=== PATIENT | male | born 1945 | race Native Hawaiian/Other Pacific Islander ===

== ENCOUNTER 2020-11-07 14:39 | Emergency (ER) | payer MEDICARE ==
[2020-11-07 16:21] LABS: Basophils % (Auto) 0.2 % (0.0-1.8); Eosinophils % (Auto) 0.2 % (0.0-4.3); Hematocrit 41.1 % (35.5-45.6); Hemoglobin 14.1 gm/dl (11.8-15.2); Lymphocytes # (Auto) 1.1 K/mm3 (1.2-5.4); Lymphocytes % (Auto) 11.6 % (13.4-35.0); Mean Corpuscular HGB Conc 34 % (32-34); Mean Corpuscular Volume 95 fl (84-94); Monocytes # (Auto) 0.6 K/mm3 (0.0-0.8); Monocytes % (Auto) 6.4 % (0.0-7.3); Platelet Count 215 K/mm3 (140-440); Red Blood Count 4.35 M/mm3 (3.65-5.03); Red Cell Distribution Width 14.4 % (13.2-15.2)
--- NOTE | 2020-11-07 16:43 | Event Note ---
ED Screening Note Date of service: 11/07/20 Time: 16:42 ED Screening Note: Pt presents with c/o chest pain and upper abd pain since this morning with associated nausea and vomiting. He denies diarrhea, SOB, fever, chills, URI symptoms. This initial assessment/diagnostic orders/clinical plan/treatment(s) is/are subject to change based on patients health status, clinical progression and re- assessment by fellow clinical providers in the ED. Further treatment and workup at subsequent clinical providers discretion. Patient/guardian urged not to elope from the ED as their condition may be serious if not clinically assessed and managed. Initial orders include: Chest pain/abd pain orders
--- NOTE | 2020-11-07 17:09 | XRay Report ---
CHEST 2 VIEWS INDICATION / CLINICAL INFORMATION: chest pain. COMPARISON: None available. FINDINGS: SUPPORT DEVICES: None. HEART / MEDIASTINUM: No significant abnormality. LUNGS / PLEURA: There is a 4 mm nodule within the right lower lung zone lymphoma view and a 4 mm nodu le in the left lower lung zone. No pneumothorax. ADDITIONAL FINDINGS: No significant additional findings. IMPRESSION: 1. Tiny 4 mm nodules are noted bilaterally. These are relatively dense and likely represent granuloma s. The lungs are clear otherwise. There is no pneumothorax. Signer Name: Abdifatah Tabor MD Signed: 11/07/2020 5:05 PM Workstation Name: [id number]
[2020-11-07 18:03] LABS: Alanine Aminotransferase 78 units/L (7-56); Albumin 4.2 g/dL (3.9-5); Blood Urea Nitrogen 20 mg/dL (9-20); Calcium 9.4 mg/dL (8.4-10.2); Hemolysis Index 6
[2020-11-07 18:08] LABS: BUN/Creatinine Ratio 29
--- NOTE | 2020-11-07 22:13 | Emergency Department Report ---
HPI - General Chief Complaint: Abdominal Pain Time Seen by Provider: 11/07/20 16:14 - HPI HPI: This patient does not speak Martiniquais and therefore the language line translation services were used for all encounters. This is a 74-year-old male presents to the emergency department with a complaint of some chest pain, abdominal pain, nausea with vomiting that started this morning around 8 AM. At that time the pain went from the middle of his abd omen up through his chest, almost to the neck. Shortly afterwards the patient had multiple episodes of vomiting. He took Tylenol 1000 mg for his symptoms with some transient relief. He then went to an urgent care clinic but they told him to come to the emergency department and that they could not help him secondary to elevated blood pressure. He denies any previous history of diagnosed hypertension and is not on any chronic medications. At the time of my examination the patient complains of some mild generalized abdominal pain. However, the chest pain, nausea and vomiting have all resolved. No recent travel or sick contacts at home. No known aggravating or alleviating factors. ED Past Medical Hx - Past Medical History Previous Medical History?: No - Surgical History Past Surgical History?: No ED Review of Systems ROS: Stated complaint: CHEST PAIN Other details as noted in HPI Comment: All other systems reviewed and negative Constitutional: denies: chills, fever Eyes: denies: eye pain, vision change ENT: denies: ear pain, throat pain Respiratory: denies: cough, shortness of breath Cardiovascular: chest pain. denies: palpitations Gastrointestinal: abdominal pain, nausea, vomiting Genitourinary: denies: dysuria, discharge Musculoskeletal: denies: back pain, arthralgia Skin: denies: rash, lesions Neurological: denies: headache, weakness Physical Exam - Physical Exam Vital Signs: Vital Signs 11/07/20 15:03 Temperature 98 F Pulse Rate 66 Respiratory 18 Rate Blood Pressure 187/90 [Right] O2 Sat by Pulse 98 Oximetry Physical Exam: GENERAL: The patient is well-developed well-nourished. HENT: Normocephalic. Atraumatic. Patient has moist mucous membranes. EYES: Extraocular motions are intact. NECK: Supple. Trachea is midline. CHEST/LUNGS: Clear to auscultation. There is no respiratory distress noted. HEART/CARDIOVASCULAR: Regular. There is no tachycardia. There is no murmur. ABDOMEN: Abdomen is soft. Generalized abdominal tenderness to palpation. No guarding. Patient has normal bowel sounds. There is no abdominal distention. SKIN: Skin is warm and dry. NEURO: The patient is awake, alert, and oriented. The patient is cooperative. The patient has no focal neurologic deficits. Normal speech. MUSCULOSKELETAL: There is no tenderness or deformity. There is no limitation range of motion. ED Course Vital Signs 11/07/20 15:03 Temperature 98 F Pulse Rate 66 Respiratory 18 Rate Blood Pressure 187/90 [Right] O2 Sat by Pulse 98 Oximetry ED Medical Decision Making - Lab Data Result diagrams: 11/07/20 15:59 11/07/20 15:59 Lab Results 11/07/20 11/07/20 11/07/20 Range/Units 15:59 15:59 16:53 WBC 9.3 (4.5-11.0) K/mm3 RBC 4.35 (3.65-5.03) M/mm3 Hgb 14.1 (11.8-15.2) gm/dl Hct 41.1 (35.5-45.6) % MCV 95 H (84-94) fl MCH 32 (28-32) pg MCHC 34 (32-34) % RDW 14.4 (13.2-15.2) % Plt Count 215 (140-440) K/mm3 Lymph % (Auto) 11.6 L (13.4-35.0) % Mccormick % (Auto) 6.4 (0.0-7.3) % Eos % (Auto) 0.2 (0.0-4.3) % Baso % (Auto) 0.2 (0.0-1.8) % Lymph # (Auto) 1.1 L (1.2-5.4) K/mm3 Mccormick # (Auto) 0.6 (0.0-0.8) K/mm3 Eos # (Auto) 0.0 (0.0-0.4) K/mm3 Baso # (Auto) 0.0 (0.0-0.1) K/mm3 Seg Neutrophils % 81.6 H (40.0-70.0) % Seg Neutrophils # 7.6 (1.8-7.7) K/mm3 Sodium 141 (137-145) mmol/L Potassium 4.7 (3.6-5.0) mmol/L Chloride 105.9 (98-107) mmol/L Carbon Dioxide 24 (22-30) mmol/L Anion Gap 16 mmol/L BUN 20 (9-20) mg/dL Creatinine 0.7 L (0.8-1.3) mg/dL Estimated GFR > 60 ml/min BUN/Creatinine Ratio 29 % Glucose 109 H (75-100) mg/dL Calcium 9.4 (8.4-10.2) mg/dL Total Bilirubin 0.80 (0.1-1.2) mg/dL AST 224 H (5-40) units/L ALT 78 H (7-56) units/L Alkaline Phosphatase 164 H (35-129) units/L Troponin T < 0.010 (0.00-0.029) ng/mL Total Protein 7.3 (6.3-8.2) g/dL Albumin 4.2 (3.9-5) g/dL Albumin/Globulin Ratio 1.4 % Lipase 322 H (13-60) units/L Urine Color (Yellow) Urine Turbidity (Clear) Urine pH (5.0-7.0) Ur Specific Fred (1.003-1.030) Urine Protein (Negative) mg/dL Urine Glucose (UA) (Negative) mg/dL Urine Ketones (Negative) mg/dL Urine Blood (Negative) Urine Nitrite (Negative) Urine Bilirubin (Negative) Urine Urobilinogen (<2.0) mg/dL Ur Leukocyte Esterase (Negative) Urine WBC (Auto) (0.0-6.0) /HPF Urine RBC (Auto) (0.0-6.0) /HPF U Epithel Cells (Auto) (0-13.0) /HPF Urine Mucus /HPF /09/25 Range/Units 23:51 WBC (4.5-11.0) K/mm3 RBC (3.65-5.03) M/mm3 Hgb (11.8-15.2) gm/dl Hct (35.5-45.6) % MCV (84-94) fl MCH (28-32) pg MCHC (32-34) % RDW (13.2-15.2) % Plt Count (140-440) K/mm3 Lymph % (Auto) (13.4-35.0) % Mccormick % (Auto) (0.0-7.3) % Eos % (Auto) (0.0-4.3) % Baso % (Auto) (0.0-1.8) % Lymph # (Auto) (1.2-5.4) K/mm3 Mccormick # (Auto) (0.0-0.8) K/mm3 Eos # (Auto) (0.0-0.4) K/mm3 Baso # (Auto) (0.0-0.1) K/mm3 Seg Neutrophils % (40.0-70.0) % Seg Neutrophils # (1.8-7.7) K/mm3 Sodium (137-145) mmol/L Potassium (3.6-5.0) mmol/L Chloride (98-107) mmol/L Carbon Dioxide (22-30) mmol/L Anion Gap mmol/L BUN (9-20) mg/dL Creatinine (0.8-1.3) mg/dL Estimated GFR ml/min BUN/Creatinine Ratio % Glucose (75-100) mg/dL Calcium (8.4-10.2) mg/dL Total Bilirubin (0.1-1.2) mg/dL AST (5-40) units/L ALT (7-56) units/L Alkaline Phosphatase (35-129) units/L Troponin T (0.00-0.029) ng/mL Total Protein (6.3-8.2) g/dL Albumin (3.9-5) g/dL Albumin/Globulin Ratio % Lipase (13-60) units/L Urine Color Yellow (Yellow) Urine Turbidity Clear (Clear) Urine pH 6.0 (5.0-7.0) Ur Specific Fred 1.020 (1.003-1.030) Urine Protein <15 mg/dl (Negative) mg/dL Urine Glucose (UA) Neg (Negative) mg/dL Urine Ketones Neg (Negative) mg/dL Urine Blood Neg (Negative) Urine Nitrite Neg (Negative) Urine Bilirubin Neg (Negative) Urine Urobilinogen < 2.0 (<2.0) mg/dL Ur Leukocyte Esterase Neg (Negative) Urine WBC (Auto) 0.0 (0.0-6.0) /HPF Urine RBC (Auto) 4.0 (0.0-6.0) /HPF U Epithel Cells (Auto) < 1.0 (0-13.0) /HPF Urine Mucus Few /HPF - EKG Data -: EKG Interpreted by [place] EKG shows normal: sinus rhythm, axis (Left axis deviation), intervals, QRS complexes (Left anterior fascicular block), ST-T waves Rate: normal - EKG Data When compared to previous EKG there are: previous EKG unavailable Interpretation: other (Sinus rhythm at 70 bpm, left axis deviation, left anterior fascicular block. No ST elevation FL.) - Radiology Data Radiology results: report reviewed ULTRASOUND ABDOMEN, RIGHT UPPER QUADRANT INDICATION / CLINICAL INFORMATION: epigastric. COMPARISON: None available. FINDINGS: PANCREAS: Partially obscured by bowel gas. Visualized portions demonstrate no significant abnormality. ABDOMINAL AORTA: No significant abnormality. IVC: No significant abnormality. LIVER: No significant abnormality. GALLBLADDER: Distended gallbladder with echogenic gallstones. No gallbladder wall thickening or significant pericholecystic fluid. No reported sonographic Queen sign. BILE DUCTS: No significant abnormality. Common bile duct measures 6 mm. FREE FLUID: None. ADDITIONAL FINDINGS: None. IMPRESSION: 1. Cholelithiasis without convincing evidence of acute cholecystitis. CT ABDOMEN AND PELVIS WITHOUT CONTRAST INDICATION / CLINICAL INFORMATION: Pt complains of mid-abd pain with nausea and vomiting since 8a.m.. TECHNIQUE: Axial CT images were obtained through the abdomen and pelvis without IV contrast. All CT scans at this location are performed using CT dose reduction for ALARA by means of automated exposure control. COMPARISON: Abdominal ultrasound same day FINDINGS: LOWER CHEST: Mild scarring at the lung bases. LIVER: No significant abnormality. GALLBLADDER: Cholelithiasis. The gallbladder is mildly distended, but there is no evidence of wall thickening or pericholecystic inflammation to suggest acute cholecystitis. BILE DUCTS: No significant abnormality. PANCREAS: No significant abnormality. SPLEEN: No significant abnormality. ADRENALS: No significant abnormality. RIGHT KIDNEY and URETER: No significant abnormality. LEFT KIDNEY and URETER: No significant abnormality. STOMACH and SMALL BOWEL: No significant abnormality. COLON: No significant abnormality. APPENDIX: No significant abnormality. PERITONEUM: No free fluid. No free air. No fluid collection. LYMPH NODES: No significant adenopathy. AORTA and ARTERIES: No s ignificant abnormality. IVC and VEINS: No significant abnormality. URINARY BLADDER: No significant abnormality. REPRODUCTIVE ORGANS: No significant abnormality. ADDITIONAL FINDINGS: None. SKELETAL SYSTEM: There is minimal age- indeterminate wedging of the superior endplate of L4. IMPRESSION: 1. No acute process identified within the abdomen or pelvis to account for patient's abdominal pain. 2. Cholelithiasis. - Medical Decision Making This patient presents to the emergency department with a complaint of abdominal pain, nausea with vomiting, and earlier had some radiation of his pain into the chest. EKG did not have any morphology consistent with ST elevation myocardial infarction. Chest x-ray did not show any pneumonia, pleural effusions, pneumothorax, or any other acute process. At the time of my examination the patient does not have any chest discomfort. There is reproducible abdominal tenderness to palpation without guarding or peritoneal signs. The abdomen is soft, nondistended and nontoxic in appearance. Labs came back showing some transaminitis with AST much greater than ALT, as well as an elevated lipase. With these findings, as well as his abdominal pain, an abdominal ultrasound was performed. It came back showing cholelithiasis without cholecystitis. The patient was sent for a CT scan of the abdomen and pelvis as well that once again shows cholelithiasis without cholecystitis, otherwise no other acute abdominal or pelvic pathology. The patient and I had a long conversation about his abnormal labs and the imaging results of cholelithiasis. He understands to avoid alcohol and Tylenol consumption. He understands that he needs to follow-up with gastroenterology and will also be given an outpatient referral for general surgery. He will return to the emergency department with any worsening of his symptoms or with any acute distress. Critical Care Time: No Critical care attestation.: If time is entered above; I have spent that time in minutes in the direct care of this critically ill patient, excluding procedure time. ED Disposition Clinical Impression: Elevated liver enzymes, Elevated pancreatic enzyme Abdominal pain Qualifiers: Abdominal location: unspecified location Qualified Code(s): R10.9 - Unspecified abdominal pain Cholelithiasis Qualifiers: Cholelithiasis location: gallbladder Cholecystitis presence: without cholecystitis Biliary obstruction: without biliary obstruction Qualified Code(s): K80.20 - Calculus of gallbladder without cholecystitis without obstruction Hypertension Qualifiers: Hypertension type: essential hypertension Qualified Code(s): I10 - Essential (primary) hypertension Disposition: TO HOME OR SELFCARE Is pt being admited?: No Condition: Stable Instructions: Cholelithiasis, Abdominal Pain, Adult, Hypertension, Adult, Hypertension (ED) Additional Instructions: Lala pérez seguimiento con un mdico de atencin primaria en los prximos mejia. Le estoy dando nguyen remisin para gastroenterologa de [place] para un seguimiento con respecto a christina enzimas hepticas y pancreticas elevadas. Evite el uso de alcohol o Tylenol, ya que esto puede empeorar las enzimas hepticas. Kervin gipson estoy dando nguyen referencia para un cirujano general local, el Dr. Fuentes, para el seguimiento de christina clculos biliares. A veces, las personas optan por que se les extraiga la vescula biliar de forma electiva si contina causndoles dolor o problemas. Trate de mantenerse alejado de los alimentos con alto contenido de zeb y productos con cafena. Lleve un registro de la presin arterial. Regrese al departamento de emergencias con cualquier empeoramiento de christina sntomas, sntomas nuevos o preocupantes que no se abordaron rd esta visita actual al departamento de emergencias, o con cualquier [place] aguda. Referrals: [facility] [Provider Group] - 3-5 Days [facility] [Provider Group] - 3-5 Days JANNA FUENTES MD [Staff Physician] - 3-5 Days Time of Disposition: 23:57 Print Language: LEBANESE HEART Score - HEART Score History: Slightly suspicious EKG: Normal Age: > 65 Risk factors: 1-2 risk factors Troponin: Troponin T < 0.010 ng/mL (0.00-0.029) 11/07/20 16:53 Troponin: < normal limit HEART Score: 3 - Critical Actions Critical Actions: 0-3 pts:0.9-1.7%risk of adverse cardiac event.Candidate for discharge
--- NOTE | 2020-11-07 22:18 | Ultrasound Report ---
ULTRASOUND ABDOMEN, RIGHT UPPER QUADRANT INDICATION / CLINICAL INFORMATION: epigastric. COMPARISON: None available. FINDINGS: PANCREAS: Partially obscured by bowel gas. Visualized portions demonstrate no significant abnormality . ABDOMINAL AORTA: No significant abnormality. IVC: No significant abnormality. LIVER: No significant abnormality. GALLBLADDER: Distended gallbladder with echogenic gallstones. No gallbladder wall thickening or signi ficant pericholecystic fluid. No reported sonographic Queen sign. BILE DUCTS: No significant abnormality. Common bile duct measures 6 mm. FREE FLUID: None. ADDITIONAL FINDINGS: None. IMPRESSION: 1. Cholelithiasis without convincing evidence of acute cholecystitis. Signer Name: David Cramer MD Signed: 11/07/2020 10:14 PM Workstation Name: [id number]
--- NOTE | 2020-11-07 23:41 | Cat Scan Report ---
CT ABDOMEN AND PELVIS WITHOUT CONTRAST INDICATION / CLINICAL INFORMATION: Pt complains of mid-abd pain with nausea and vomiting since 8a.m.. TECHNIQUE: Axial CT images were obtained through the abdomen and pelvis without IV contrast. All CT scans at [facility] location are performed using CT dose reduction for ALARA by means of automated exposure control. COMPARISON: Abdominal ultrasound same day FINDINGS: LOWER CHEST: Mild scarring at the lung bases. LIVER: No significant abnormality. GALLBLADDER: Cholelithiasis. The gallbladder is mildly distended, but there is no evidence of wall th ickening or pericholecystic inflammation to suggest acute cholecystitis. BILE DUCTS: No significant abnormality. PANCREAS: No significant abnormality. SPLEEN: No significant abnormality. ADRENALS: No significant abnormality. RIGHT KIDNEY and URETER: No significant abnormality. LEFT KIDNEY and URETER: No significant abnormality. STOMACH and SMALL BOWEL: No significant abnormality. COLON: No significant abnormality. APPENDIX: No significant abnormality. PERITONEUM: No free fluid. No free air. No fluid collection. LYMPH NODES: No significant adenopathy. AORTA and ARTERIES: No significant abnormality. IVC and VEINS: No significant abnormality. URINARY BLADDER: No significant abnormality. REPRODUCTIVE ORGANS: No significant abnormality. ADDITIONAL FINDINGS: None. SKELETAL SYSTEM: There is minimal age-indeterminate wedging of the superior endplate of L4. IMPRESSION: 1. No acute process identified within the abdomen or pelvis to account for patient's abdominal pain. 2. Cholelithiasis. Signer Name: Lianne Lara MD Signed: 11/07/2020 11:37 PM Workstation Name: [id number]
[2020-11-08 00:31] VITALS: BP 177/80
[2020-11-08 00:31] LABS: Bilirubin,Urine NEG (Negative); Blood,Urine NEG (Negative); Color,Urine Yellow (Yellow); Mucus,Urine FEW /HPF; Protein,Urine <15 mg/dL mg/dL (Negative); Urobilinogen,Urine < 2.0 mg/dL (<2.0)
== END 2020-11-08 | disposition home or self-care (01) ==
LOC: ED 14:39
DX: K80.20 Calculus of gallbladder without cholecystitis without obstruction (principal); I10 Essential (primary) hypertension; R94.5 Abnormal results of liver function studies
CPT/HCPCS: 36415; 71046; 74176; 76705; 80053; 81001; 83690; 84484; 85025; 93005